=== PATIENT | male | born 1955 | race Two or more races ===

== ENCOUNTER 2017-07-26 14:54 | Outpatient (CLI) | payer OTHER ==
[~2017-07-26 14:54] MED LIST: COZAAR50 MG PO; KEFLEX500 MG PO; TRAMADOL HCL50 MG PO
== END 2017-07-26 15:03 | disposition home or self-care (01) ==
LOC: SONOGRAMA 14:54
DX: M25.562 Pain in left knee (principal); M71.22 Synovial cyst of popliteal space [Baker], left knee

== ENCOUNTER 2018-09-29 16:13 | Outpatient (CLI) | payer OTHER | END 2018-09-29 16:22 | disposition home or self-care (01) | LOC: RAD 16:13 | DX: M25.562 Pain in left knee (principal); M25.552 Pain in left hip ==